=== PATIENT | male | born 1960 | race Caucasian/White ===

== ENCOUNTER → 2016-07-26 | Outpatient (CLI) | payer OTHER ==
[~2016-07-26] MED LIST: AUGMENTIN 875 M1 TAB PO; BUMETANIDE1 MG PO; CLINDAMYCIN HC300 MG PO; ENTERIC ASPIRI325 MG PO; EYE DROPS; FOLTANX TABLET1 EACH PO; FOLTRATE PO; GABAPENTIN100 M1 PO; GABAPENTIN100 M2 PO; HYZAAR 12.5 MG-1 TA1 PO; KRILL OIL500 MG PO; LANTUS SOLOS100 U/M1 SC; LANTUS100 U/ML SC; LASIX40 MG PO; LINZESS PO; LOSARTAN POTASS50 M1 PO; Meclizine25 MG PO; NOVOLIN R100 U/ML IJ; NOVOLOG 701 UNIT/0.0 IV; NOVOLOG FLEX100 U/ML IJ; OMEGA-3 FISH1200 MG PO; OMNICEF300 MG PO; PLAVIX75 MG PO; PROTONIX40 MG PO; TENORMIN25 MG PO; TOUJEO300 U/ML SC; VICODIN ES 7501 TAB PO; ZOCOR80 MG PO; ZOVIRAX800 MG PO
[2016-07-26 11:55] LABS: BILIRUBIN NEGATIVE (NEGATIVE); BLOOD NEGATIVE (NEGATIVE); CLARITY CLEAR (CLEAR); COLOR YELLOW (YELLOW); GLUCOSE NEGATIVE (NEGATIVE); KETONE NEGATIVE (NEGATIVE); LEUKO ESTERASE NEGATIVE (NEGATIVE); NITRITE NEGATIVE (NEGATIVE); PROTEIN NEGATIVE (NEGATIVE); SPECIFIC GRAVITY <= 1.005 (1.005-1.030); UROBILINOGEN 0.2 E.U./dl (0.2-1.0)
[2016-07-26 12:02] LABS: BASO # 0.1 10*3/uL (0.0-0.1); BASO % 0.8 % (0.0-1.0); EOS # 0.3 10*3/uL (0.0-0.4); HEMATOCRIT 36.5 % (42.0-52.0); HEMOGLOBIN 12.2 g/dl (14.0-18.0); LYMPH # 1.2 10*3/uL (1.3-4.4); LYMPH % 18.4 % (27.0-41.0); MEAN CELL VOLUME 88.8 fl (80.0-94.0); MEAN CORPUSCULAR HGB 29.7 pg (27.0-31.0); MEAN CORPUSCULAR HGB CONC 33.4 g/dl (33.0-37.0); MEAN PLATELET VOLUME 12.6 fl (9.6-12.3); MONO # 0.8 10*3/uL (0.1-1.0); MONO % 11.4 % (3.0-9.0); NEUT # 4.3 10*3/uL (2.3-7.9); NEUT % 64.9 % (47.0-73.0); PLATELET COUNT AUTOMATED 184 10*3/uL (130-400); RED BLOOD COUNT 4.11 10*6/uL (4.50-5.90); RED CELL DISTRI WIDTH 13.3 % (0-14.5); WHITE BLOOD COUNT 6.6 10*3/uL (4.8-10.8)
[2016-07-26 12:03] LABS: URINE TP/CRE RATIO 0.1 (<0.21)
[2016-07-26 12:09] LABS: EPITHELIAL CELLS 0-2
[2016-07-26 12:16] LABS: ALBUMIN 3.5 gm/dl (3.1-4.5); MAGNESIUM 2.4 mg/dL (1.5-2.1); PHOSPHOROUS 2.9 mg/dL (2.5-4.9); POTASSIUM 4.1 mmol/L (3.5-5.1)
[2016-07-26 12:21] LABS: HEMOGLOBIN A1c 10.6 % (4.8-5.6)
[2016-07-26 12:28] LABS: PTH INTACT 66.4 pg/mL (14.0-72.0); VITAMIN D, 25-HYDROXY 29.3 ng/mL (30-100)
== END | disposition home or self-care (01) ==
LOC: LAB 11:16
PROVIDERS: Internal Medicine Nephrology
DX: E10.22 Type 1 diabetes mellitus with diabetic chronic kidney disease (principal); N18.3 Chronic kidney disease, stage 3 (moderate); E55.9 Vitamin D deficiency, unspecified

== ENCOUNTER → 2016-09-20 | Outpatient (CLI) | payer OTHER ==
--- NOTE | ~2016-09-20 | PR ---
[place], [place] PROGRESS NOTE NAME: CHAPIS WOOD UNIT #: [id number] ROOM: DOCTOR: NORMA GUTHRIE DPM BIRTHDATE: [birth year] DOS: 09/20/2016 SUBJECTIVE: This is a patient that has been previously seen at [facility], but has not been seen for a quite some time. He is here for new complaint of bilateral lower extremity ulcers. He states that the right leg had opened, but it was pretty stable, The left leg that has become very swollen and there is quite a bit of open areas, redness and swelling and pain associated with the areas. PHYSICAL EXAMINATION: It is noted that the right lower leg ulcerations are as described on the right lower leg, anterior measures 1 x 1.3 x 0.1 cm. Right lower leg posterior wound measures 0.8 x 1.4 x 0.1 cm. Left leg anterior wound is 7.6 x 6 x 0.1 cm and left lower leg posterior wound is 13 x 6 x 0.1 cm. Cellulitis is noted around all wounds. The left leg has +2 pitting edema with a tight skin and increased warmth to the tissue structures surrounding the ulceration. No odor is noted. No active drainage is noted from the areas at this time. Pulses are palpable. ABIs were 1.3 bilateral. IMPRESSION: Bilateral lower extremity peripheral vascular disease with venous stasis ulcerations and early cellulitis. PLAN: 1. Evaluate. 2. Culture and sensitivities were obtained. The patient was placed on doxycycline hyclate 100 mg tablets 1 tablet p.o. b.i.d. We will start him on Maxorb Ag and a dry bulky dressing to the area twice daily or more so if needed with drainage. Elevation will be nassar. The patient was also educated about his diet and again elevation. The patient will be seen next week for followup of this complaint. NORMA GUTHRIE DPM CM:PNTRANS 2 NORMA GUTHRIE DPM 09/20/16 0952 interface
== END | disposition home or self-care (01) ==
LOC: WOUNDCARE 02:45
DX: I87.333 Chronic venous hypertension (idiopathic) with ulcer and inflammation of bilateral lower extremity (principal); L97.212 Non-pressure chronic ulcer of right calf with fat layer exposed; L97.222 Non-pressure chronic ulcer of left calf with fat layer exposed

== ENCOUNTER → 2016-09-27 | Outpatient (CLI) | payer OTHER ==
--- NOTE | ~2016-09-27 | PR ---
[place], [place] PROGRESS NOTE NAME: CHAPIS WOOD UNIT #: [id number] ROOM: DOCTOR: NORMA GUTHRIE DPM BIRTHDATE: [birth year] DOS: 09/27/2016 SUBJECTIVE: The patient seen for bilateral lower extremity full-thickness venous ulcerations. Last visit, the patient was placed on doxycycline and a culture was taken. He was started on Maxorb AG. He has been performing dressing changes as directed and he has taken the doxycycline. Culture results did come back with MRSA, which was susceptible to tetracycline. PHYSICAL EXAMINATION: It is noted that the right lower leg anterior wound measures 0.8 x 0.8 x 0.1 cm. Right lower leg posterior ulceration is 0.4 cm x 0.8 cm x 0.1 cm. Left leg anterior wound is 7.5 cm x 6 cm x 0.1 cm and left lower leg posterior wound is 12 cm x 6 cm x 0.1 cm. All wounds are slough covered. Today, a 15 blade was used to remove slough and debris through subcutaneous. The patient tolerated procedure well and no bleeding was noted. No signs of overt or gross abscess or infection. Cellulitis is resolving. There is still prominent edema bilateral lower extremity, +1 pitting in nature. IMPRESSION: Peripheral vascular disease with full-thickness venous ulcerations as described above and edema. PLAN: 1. Evaluate. 2. Debridement was performed as described above. The patient did have his doxycycline extended for 5 additional days. Today, we will start multilayer compression therapy, Maxorb Ag and multilayer compression will be applied to bilateral lower extremities. The patient will keep this on clean, dry, and intact and be seen for a nurse visit on Monday and then hopefully if things are going well, multilayer compression wrap will be reapplied and I will see him again next [facility]. NORMA GUTHRIE DPM CM:PNTRANS [phone] NORMA GUTHRIE DPM 09/27/162137 interface
== END ==
LOC: WOUNDCARE 03:25
DX: I87.333 Chronic venous hypertension (idiopathic) with ulcer and inflammation of bilateral lower extremity (principal); L97.212 Non-pressure chronic ulcer of right calf with fat layer exposed; L97.222 Non-pressure chronic ulcer of left calf with fat layer exposed; I73.9 Peripheral vascular disease, unspecified

== ENCOUNTER → 2016-09-30 | Outpatient (CLI) | payer OTHER | LOC: WOUNDCARE 00:46 | DX: I87.333 Chronic venous hypertension (idiopathic) with ulcer and inflammation of bilateral lower extremity (principal); L97.212 Non-pressure chronic ulcer of right calf with fat layer exposed; L97.222 Non-pressure chronic ulcer of left calf with fat layer exposed ==

== ENCOUNTER → 2016-10-04 | Outpatient (CLI) | payer OTHER ==
--- NOTE | ~2016-10-04 | PR ---
[place], [place] PROGRESS NOTE NAME: CHAPIS WOOD UNIT #: [id number] ROOM: DOCTOR: NORMA GUTHRIE DPM BIRTHDATE: [birth year] DOS: 10/04/2016 SUBJECTIVE: The patient seen for bilateral lower extremity venous ulcers. The patient states that on Monday, he believes that he got into possibly some poison sumac, so he removed the multilayer compressions, so that he can take a shower. Otherwise, he has had some burning in the legs, but it was not necessarily alleviated by removal of compression wrap therapy. He has been keeping the bandages. The wounds, otherwise, covered with gauze. The patient seen today with right lower leg anterior ulcer, progressing well at 0.6 x 0.6 x 0.1, right lower leg posterior wound is 0.1 x 0.1 x 0.1. Both of these wounds are improved. No debridement was performed at this time on this area. Left lower leg anterior wound is 6.6 cm x 3.5 cm x 0.1 cm. There is slough covered left lower leg posterior ulcer, circumferential is 12.5 cm x 7 cm x 0.1 cm. These are slough covered also. Both of these areas were debrided with 15 blade through subcutaneous to remove devitalized tissue debris and fibrosis. The patient tolerated the procedure well. Minimal bleeding was noted and controlled via pressure. The patient tolerated the procedure well. IMPRESSION: Bilateral lower extremity ulcerations, full thickness venous in nature. Today, debridement was performed as described above and instead of multilayer compression wrap therapy, we will use Unna boots to see if patient tolerates the Unna boots. He might have a slight allergic reaction to the multilayer compression wrap therapy. If the patient has any difficulties with the Unna boot therapy, he is to call us at the [facility]. Otherwise, we will see him for followup next week. NORMA GUTHRIE DPM CM:PNTRANS [phone] NORMA GUTHRIE DPM 10/05/16 0009 interface
== END ==
LOC: WOUNDCARE 02:03
DX: I87.333 Chronic venous hypertension (idiopathic) with ulcer and inflammation of bilateral lower extremity (principal); L97.212 Non-pressure chronic ulcer of right calf with fat layer exposed; L97.222 Non-pressure chronic ulcer of left calf with fat layer exposed

== ENCOUNTER → 2016-10-11 | Outpatient (CLI) | payer OTHER ==
--- NOTE | ~2016-10-11 | PR ---
[place], [place] PROGRESS NOTE NAME: CHAPIS WOOD UNIT #: [id number] ROOM: DOCTOR: NORMA GUTHRIE DPM BIRTHDATE: [birth year] DOS: 10/11/2016 SUBJECTIVE: The patient is seen for bilateral lower extremity full thickness venous ulcers. The patient had Unna boots applied last week on Monday. He had kept them on, but said they started to unroll and then he ended up taking them off on Monday, otherwise no new complaints. PHYSICAL EXAMINATION: It is noted that all the wounds are improved in diameter and character. Right lower leg anterior wound is measuring 0.8 cm x 0.5 cm x 0.1 cm. Right lower leg posterior wound is 0.5 cm x 0.3 cm x 0.1 cm. Left leg anterior wound is 3.7 cm x 3 cm x 0.1 cm and left lower leg posterior wound is 12.5 cm x 7 cm x 0.1 cm. All wounds have a mix of epithelialization and granulation tissue. No slough or debris or need for debridement is present. Edema is controlled, as is exudate management today. IMPRESSION: Bilateral peripheral vascular disease with edema and venous ulcers, progressing well. PLAN: 1. We will evaluate. 2. We will use Lesvia and Unna boots for compression therapy. The patient is to keep this on clean, dry and intact for 1 week and reappoint next Monday for a nurse visit, as I will be out of town and then I will continue to see him, but see him on Monday starting in October. NORMA GUTHRIE DPM CM:PNTRANS [phone] NORMA GUTHRIE DPM 10/11/16 1038 interface
== END ==
LOC: WOUNDCARE 04:04
DX: I87.333 Chronic venous hypertension (idiopathic) with ulcer and inflammation of bilateral lower extremity (principal); L97.212 Non-pressure chronic ulcer of right calf with fat layer exposed; L97.222 Non-pressure chronic ulcer of left calf with fat layer exposed; I73.9 Peripheral vascular disease, unspecified

== ENCOUNTER → 2016-10-14 | Outpatient (CLI) | payer OTHER | LOC: WOUNDCARE 08:02 | DX: I87.333 Chronic venous hypertension (idiopathic) with ulcer and inflammation of bilateral lower extremity (principal); L97.212 Non-pressure chronic ulcer of right calf with fat layer exposed; L97.222 Non-pressure chronic ulcer of left calf with fat layer exposed ==

== ENCOUNTER → 2016-10-18 | Outpatient (CLI) | payer OTHER | LOC: WOUNDCARE 01:18 | DX: I87.333 Chronic venous hypertension (idiopathic) with ulcer and inflammation of bilateral lower extremity (principal); L97.212 Non-pressure chronic ulcer of right calf with fat layer exposed; L97.222 Non-pressure chronic ulcer of left calf with fat layer exposed ==

== ENCOUNTER → 2016-10-24 | Outpatient (CLI) | payer OTHER | LOC: WOUNDCARE 02:03 | DX: I87.333 Chronic venous hypertension (idiopathic) with ulcer and inflammation of bilateral lower extremity (principal); L97.212 Non-pressure chronic ulcer of right calf with fat layer exposed; L97.222 Non-pressure chronic ulcer of left calf with fat layer exposed ==

== ENCOUNTER → 2016-10-27 | Outpatient (CLI) | payer OTHER | LOC: WOUNDCARE 00:27 | DX: I87.333 Chronic venous hypertension (idiopathic) with ulcer and inflammation of bilateral lower extremity (principal); E10.622 Type 1 diabetes mellitus with other skin ulcer; L97.212 Non-pressure chronic ulcer of right calf with fat layer exposed; L97.222 Non-pressure chronic ulcer of left calf with fat layer exposed; I25.10 Atherosclerotic heart disease of native coronary artery without angina pectoris; I10 Essential (primary) hypertension; I25.2 Old myocardial infarction; E10.36 Type 1 diabetes mellitus with diabetic cataract; K21.9 Gastro-esophageal reflux disease without esophagitis; E10.40 Type 1 diabetes mellitus with diabetic neuropathy, unspecified; J45.909 Unspecified asthma, uncomplicated; Z79.01 Long term (current) use of anticoagulants; Z45.018 Encounter for adjustment and management of other part of cardiac pacemaker ==

== ENCOUNTER → 2016-11-04 | Outpatient (CLI) | payer OTHER | LOC: WOUNDCARE 02:46 | DX: I87.333 Chronic venous hypertension (idiopathic) with ulcer and inflammation of bilateral lower extremity (principal); L97.212 Non-pressure chronic ulcer of right calf with fat layer exposed; L97.222 Non-pressure chronic ulcer of left calf with fat layer exposed ==

== ENCOUNTER → 2016-11-09 | Outpatient (CLI) | payer OTHER | LOC: WOUNDCARE 03:09 | DX: I87.333 Chronic venous hypertension (idiopathic) with ulcer and inflammation of bilateral lower extremity (principal); L97.212 Non-pressure chronic ulcer of right calf with fat layer exposed; L97.222 Non-pressure chronic ulcer of left calf with fat layer exposed ==

== ENCOUNTER → 2016-11-11 | Outpatient (CLI) | payer OTHER ==
--- NOTE | ~2016-11-11 | PR ---
[place], [place] PROGRESS NOTE NAME: CHAPIS WOOD UNIT #: [id number] ROOM: DOCTOR: NORMA GUTHRIE DPM BIRTHDATE: [birth year] DOS: 11/11/2016 SUBJECTIVE: This is an established patient seen for bilateral lower extremity full thickness venous ulcers. He did have a nurse visit midweek but was unable to change, so he was able to keep them on again until this visit. OBJECTIVE: The right foot unwrapped a tiny bit, but he did keep his compression on. There is small new open area on the right lower leg that measures 0.1 x 0.1 x 0.1. Left lower leg anterior ulcer is smaller at 0.4 x 0.4 x 0.1 and the other wounds are also improved. There was a debridement performed on the left lower leg anterior dorsal ulcer to remove callus tissue and debris. No bleeding was noted. The patient tolerated the procedure well. IMPRESSION: Bilateral lower extremity venous ulcers, progressing well. PLAN: 1. Evaluate. 2. Debridement was performed. We will reapply Unna boot. I would like the patient to keep them on as long as possible. Unfortunately, because we do not have the physician in clinic all next week, we cannot do a nurse visit, so if he would have to remove them prior to the following week, we would like him to remove it and then put double Tubigrip on. The patient will be followed the week after next at the wound care center for this complaint. He is to call if any problems arise in the meantime. NORMA GUTHRIE DPM CM:PNTRANS [phone] NORMA GUTHRIE DPM 11/11/16 2338 interface
== END | disposition home or self-care (01) ==
LOC: WOUNDCARE 02:22
DX: I87.313 Chronic venous hypertension (idiopathic) with ulcer of bilateral lower extremity (principal); L97.811 Non-pressure chronic ulcer of other part of right lower leg limited to breakdown of skin; L97.821 Non-pressure chronic ulcer of other part of left lower leg limited to breakdown of skin

== ENCOUNTER → 2016-12-09 | Outpatient (CLI) | payer OTHER ==
--- NOTE | ~2016-12-09 | PR ---
[place], [place] PROGRESS NOTE NAME: CHAPIS WOOD UNIT #: [id number] ROOM: DOCTOR: NORMA GUTHRIE DPM BIRTHDATE: [birth year] DOS: SUBJECTIVE: The patient seen back at the wound care center for bilateral lower extremity venous ulcers. The patient had been seen here and wounds healed previously. Apparently, he is having some problems with kidney dysfunction. He was told to not take his water pill when he was not taking the diuretic, he had a lot of lower extremity edema, which subsequently resulted in multiple areas of blister that then ulcerated, and he is here for that complaint. Upon physical exam, there were multiple areas of superficial partial thickness venous ulcers on both the right and lower leg. There are over 6 wounds in total. These wounds are all noted and charted and measured and put in the nurse's notes. There is slough covered wounds on the left lower leg, which were debrided. The area that was debrided on the anterior left lower leg measured 2.5 cm x 1.5 cm x 0.1 cm. This area was debrided of slough, debris and devitalized tissues through subcutaneous. The patient tolerated the procedure well and had no problems during the procedure. The left lower leg medial posterior ulcer is also slough covered at 0.4 cm x 0.7 cm x 0.1 cm. This area was debrided through to subcutaneous with the 15 blade to remove devitalized tissue. The patient tolerated this procedure well and no bleeding was noted or signs of infection. There is some slight erythema on the lower extremities with some warmth to the area. It is not certain that this is because of the uncontrolled edema or very mild cellulitis. Because of this, the patient will be placed on doxycycline. IMPRESSION: Partial thickness venous ulcers, bilateral lower extremity, multiple in nature. PLAN: 1. Evaluate. 2. Debridement of two ulcers was performed as described above. We will use Puracol and Unna boots for compression. The patient will keep these on until Monday. I would like to see him back as a nurse visit to make certain that he is tolerating the procedures well and I have placed him on doxycycline hyclate 100 mg tablets 1 tablet p.o. b.i.d. and we will go from there. [place], [place] PROGRESS NOTE NAME: CHAPIS WOOD UNIT #: [id number] ROOM: DOCTOR: NORMA GUTHRIE DPM BIRTHDATE: [birth year] NORMA GUTHRIE DPM CM:KATHY [phone] NORMA GUTHRIE DPM 12/10/16 0018 interface
== END | disposition home or self-care (01) ==
LOC: WOUNDCARE 02:01
DX: I87.333 Chronic venous hypertension (idiopathic) with ulcer and inflammation of bilateral lower extremity (principal); L97.212 Non-pressure chronic ulcer of right calf with fat layer exposed; L97.222 Non-pressure chronic ulcer of left calf with fat layer exposed

== ENCOUNTER → 2016-12-13 | Outpatient (CLI) | payer OTHER | END | disposition home or self-care (01) | LOC: WOUNDCARE 08:05 | DX: I87.333 Chronic venous hypertension (idiopathic) with ulcer and inflammation of bilateral lower extremity (principal); L97.212 Non-pressure chronic ulcer of right calf with fat layer exposed; L97.222 Non-pressure chronic ulcer of left calf with fat layer exposed ==

== ENCOUNTER → 2016-12-15 | Outpatient (CLI) | payer OTHER ==
[2016-12-15 13:18] LABS: BASO # 0.1 10*3/uL (0.0-0.1); BASO % 0.8 % (0.0-1.0); EOS # 0.2 10*3/uL (0.0-0.4); EOS % 3.8 % (1.0-4.0); HEMATOCRIT 36.1 % (42.0-52.0); LYMPH # 1.4 10*3/uL (1.3-4.4); LYMPH % 23.5 % (27.0-41.0); MEAN CELL VOLUME 90.7 fl (80.0-94.0); MEAN CORPUSCULAR HGB 30.2 pg (27.0-31.0); MEAN CORPUSCULAR HGB CONC 33.2 g/dl (33.0-37.0); MONO # 0.6 10*3/uL (0.1-1.0); MONO % 10.2 % (3.0-9.0); NEUT # 3.7 10*3/uL (2.3-7.9); NEUT % 61.4 % (47.0-73.0); PLATELET COUNT AUTOMATED 176 10*3/uL (130-400); RED BLOOD COUNT 3.98 10*6/uL (4.50-5.90); RED CELL DISTRI WIDTH 13.7 % (0-14.5)
[2016-12-15 13:29] LABS: ALBUMIN 3.4 gm/dl (3.1-4.5); CREATININE 1.58 mg/dL (0.70-1.30); MAGNESIUM 2.2 mg/dL (1.5-2.1); PHOSPHOROUS 2.5 mg/dL (2.5-4.9); POTASSIUM 4.1 mmol/L (3.5-5.1)
[2016-12-15 13:46] LABS: BILIRUBIN NEGATIVE (NEGATIVE); BLOOD NEGATIVE (NEGATIVE); CLARITY CLEAR (CLEAR); COLOR YELLOW (YELLOW); GLUCOSE TRACE (NEGATIVE); KETONE NEGATIVE (NEGATIVE); LEUKO ESTERASE NEGATIVE (NEGATIVE); NITRITE NEGATIVE (NEGATIVE); PH 5.5 (5.0-9.0); SPECIFIC GRAVITY 1.015 (1.005-1.030); UROBILINOGEN 0.2 E.U./dl (0.2-1.0)
[2016-12-15 14:02] LABS: VITAMIN D, 25-HYDROXY 40.5 ng/mL (30-100)
[2016-12-15 14:03] LABS: PTH INTACT 45.3 pg/mL (14.0-72.0)
== END | disposition home or self-care (01) ==
LOC: LAB 12:55
PROVIDERS: Internal Medicine Nephrology
DX: N18.3 Chronic kidney disease, stage 3 (moderate) (principal); E10.22 Type 1 diabetes mellitus with diabetic chronic kidney disease; E55.9 Vitamin D deficiency, unspecified

== ENCOUNTER → 2016-12-16 | Outpatient (CLI) | payer OTHER ==
--- NOTE | ~2016-12-16 | PR ---
[place], [place] PROGRESS NOTE NAME: CHAPIS WOOD UNIT #: [id number] ROOM: DOCTOR: NORMA GUTHRIE DPM BIRTHDATE: [birth year] DOS: 12/16/2016 SUBJECTIVE: The patient seen for bilateral lower extremity venous stasis ulcers. Last week, we put him Unna boots and he has tolerated that procedure well. PHYSICAL EXAMINATION: It is noted that the right lower leg wounds are essentially healed. They are scabbed over and measuring 0.1 x 0.1 x 0.1. Left leg does have one area with open wound that measures 1 cm x 1 cm x 0.1 cm. This area was not debrided. It is clean and very healthy at this point in time. Edema is controlled and no signs of any cellulitis or any other abnormalities noted. IMPRESSION: Venous ulcers with edema controlled well with Unna boots. PLAN; 1. Evaluate. 2. We will place the patient in a double Tubigrip on the right, but we will reapply the Unna boot to the left. The patient will keep this on clean, dry, and intact and reappoint in 1 week if any problems should arise. He is to call the [facility] previously to that. NORMA GUTHRIE DPM CM:PNTRANS [phone] NORMA GUTHRIE DPM 12/17/16 0124 interface
== END | disposition home or self-care (01) ==
LOC: WOUNDCARE 03:00
DX: I87.333 Chronic venous hypertension (idiopathic) with ulcer and inflammation of bilateral lower extremity (principal); L97.212 Non-pressure chronic ulcer of right calf with fat layer exposed; L97.222 Non-pressure chronic ulcer of left calf with fat layer exposed

== ENCOUNTER → 2016-12-23 | Outpatient (CLI) | payer OTHER ==
--- NOTE | ~2016-12-23 | PR ---
[place], [place] PROGRESS NOTE NAME: CHAPIS WOOD UNIT #: [id number] ROOM: DOCTOR: NORMA GUTHRIE DPM BIRTHDATE: [birth year] DOS: 12/23/2016 SUBJECTIVE: The patient seen for bilateral lower extremity venous stasis ulcers. He had multilayer compression with Unna boot on the right. He was wearing the Tubigrip on the left. Today, he presents with a new ulceration on the left lower extremity. Right is unproblematic at this point in time. With removal of the Unna boot, it is noted that the right lower extremity ulcers are scabbed over and crusted over, but on the left lower extremity, there is a new ulceration which is measuring 0.5 cm x 0.6 cm x 0.1 cm. This area was not debrided. There is some minimal serous drainage coming from the area and no signs of infection. IMPRESSION: Bilateral lower extremity venous stasis with chronic ulcerations due to edema. PLAN: 1. Evaluate. 2. It was discussed with the patient that we need to really control his edema with compression. He states that his regular compression stockings cut him off at the ankle. There is a new type of compression stocking from [employer] that also has a zipper and I think would be good for him because it would not cut him off at the ankle. I am trying to get that authorized through his insurance for him. In the meantime, we will rewrap both lower extremities with Unna boots for compression therapy and see him back in 1 week. NORMA GUTHRIE DPM CM:PNTRANS [phone] NORMA GUTHRIE DPM 12/24/16 0940 interface
== END | disposition home or self-care (01) ==
LOC: WOUNDCARE 00:25
DX: I87.333 Chronic venous hypertension (idiopathic) with ulcer and inflammation of bilateral lower extremity (principal); L97.222 Non-pressure chronic ulcer of left calf with fat layer exposed; L97.212 Non-pressure chronic ulcer of right calf with fat layer exposed

== ENCOUNTER → 2017-01-06 | Outpatient (CLI) | payer OTHER ==
--- NOTE | ~2017-01-06 | PR ---
[place], [place] PROGRESS NOTE [id number] UNIT #: [id number] ROOM: DOCTOR: NORMA GUTHRIE DPM BIRTHDATE: [birth year] DOS: 01/06/2017 SUBJECTIVE: The patient is seen today for new complaints of reopened ulcers, bilateral lower extremities. The patient has not been seen for a couple of weeks. He said that his previous ulcers had healed. Several days ago, he had a bump on his coffee table on his right lower extremity, which caused an ulceration and a day later, a blister that opened up on the left lower extremity and caused ulcerations. He is here for those complaints. PHYSICAL EXAMINATION: It is noted that the left lower leg medial anterior proximal wound has healed. Left lower leg medial anterior distal wound has healed. Left leg lower midline posterior wound has healed. Right lower leg medial anterior proximal wound has healed. Right lower leg lateral proximal wound was healed. Right lower leg lateral distal wound was healed. The patient has an open area on the right lower leg midline, which measures 0.7 x 1.5 x 0.1 and also an open area on the left lower leg posterior, measuring 4 cm x 7 cm x 0.1 cm. This area was debrided through subcutaneous with a 15 blade to remove devitalized tissue and debris. No bleeding was noted. The patient tolerated procedure well. No signs of infection or other complications noted. IMPRESSION: Bilateral lower extremity full thickness venous stasis ulcerations, one on the right, complicated by trauma. PLAN: 1. Evaluate. 2. Debridement of the left leg was performed as described above. We will use Aquacel and Unna boots to the area for compression. The patient is to keep these dressings on, clean, dry, and intact for an entire week and then reappoint in 1 week for followup. If any problems should arise, he can call us immediately. NORMA GUTHRIE DPM CM:PNTRANS [phone] NORMA GUTHRIE DPM 01/06/17 1341 interface
== END | disposition home or self-care (01) ==
LOC: WOUNDCARE 02:40
DX: I87.333 Chronic venous hypertension (idiopathic) with ulcer and inflammation of bilateral lower extremity (principal); L97.212 Non-pressure chronic ulcer of right calf with fat layer exposed; L97.222 Non-pressure chronic ulcer of left calf with fat layer exposed

== ENCOUNTER → 2017-01-13 | Outpatient (CLI) | payer OTHER | END | disposition home or self-care (01) | LOC: WOUNDCARE 02:11 | DX: E11.621 Type 2 diabetes mellitus with foot ulcer (principal); I87.333 Chronic venous hypertension (idiopathic) with ulcer and inflammation of bilateral lower extremity; L97.212 Non-pressure chronic ulcer of right calf with fat layer exposed; L97.222 Non-pressure chronic ulcer of left calf with fat layer exposed; L97.512 Non-pressure chronic ulcer of other part of right foot with fat layer exposed; L97.511 Non-pressure chronic ulcer of other part of right foot limited to breakdown of skin; Z95.0 Presence of cardiac pacemaker; Z98.61 Coronary angioplasty status; Z87.891 Personal history of nicotine dependence; Z72.89 Other problems related to lifestyle ==

== ENCOUNTER → 2017-05-09 | Outpatient (CLI) | payer OTHER ==
[2017-05-09 13:34] LABS: BASO # 0.1 10*3/uL (0.0-0.1); BILIRUBIN NEGATIVE (NEGATIVE); BLOOD NEGATIVE (NEGATIVE); CLARITY CLEAR (CLEAR); COLOR YELLOW (YELLOW); EOS # 0.3 10*3/uL (0.0-0.4); EOS % 4.6 % (1.0-4.0); GLUCOSE 2+ (NEGATIVE); HEMATOCRIT 39.4 % (42.0-52.0); HEMOGLOBIN 13.2 g/dl (14.0-18.0); KETONE NEGATIVE (NEGATIVE); LEUKO ESTERASE NEGATIVE (NEGATIVE); LYMPH # 1.6 10*3/uL (1.3-4.4); LYMPH % 23.2 % (27.0-41.0); MEAN CELL VOLUME 88.7 fl (80.0-94.0); MEAN CORPUSCULAR HGB 29.7 pg (27.0-31.0); MEAN CORPUSCULAR HGB CONC 33.5 g/dl (33.0-37.0); MEAN PLATELET VOLUME 12.7 fl (9.6-12.3); MONO # 0.6 10*3/uL (0.1-1.0); MONO % 9.5 % (3.0-9.0); NEUT # 4.2 10*3/uL (2.3-7.9); NEUT % 61.4 % (47.0-73.0); NITRITE NEGATIVE (NEGATIVE); PLATELET COUNT AUTOMATED 186 10*3/uL (130-400); RED BLOOD COUNT 4.44 10*6/uL (4.50-5.90); RED CELL DISTRI WIDTH 12.8 % (0-14.5); SPECIFIC GRAVITY <= 1.005 (1.005-1.030); UROBILINOGEN 0.2 E.U./dl (0.2-1.0); WHITE BLOOD COUNT 6.8 10*3/uL (4.8-10.8)
[2017-05-09 13:42] LABS: BACTERIA TRACE; EPITHELIAL CELLS 0-2; HYALINE CAST 20-25
[2017-05-09 13:58] LABS: ALBUMIN 3.6 gm/dl (3.1-4.5); CREATININE 1.78 mg/dL (0.70-1.30); PHOSPHOROUS 2.5 mg/dL (2.5-4.9)
[2017-05-09 14:11] LABS: URINE CREATININE RANDOM 32.9 mg/dL
[2017-05-09 14:25] LABS: PTH INTACT 59.6 pg/mL (14.0-72.0)
== END | disposition home or self-care (01) ==
LOC: LAB 13:01
PROVIDERS: Internal Medicine Nephrology
DX: E10.22 Type 1 diabetes mellitus with diabetic chronic kidney disease (principal); N18.3 Chronic kidney disease, stage 3 (moderate); E55.9 Vitamin D deficiency, unspecified

== ENCOUNTER → 2017-08-11 | Outpatient (CLI) | payer OTHER ==
[2017-08-11 10:00] LABS: BASO # 0.1 10*3/uL (0.0-0.1); BASO % 1.1 % (0.0-1.0); EOS # 0.2 10*3/uL (0.0-0.4); EOS % 3.6 % (1.0-4.0); HEMOGLOBIN 12.2 g/dl (14.0-18.0); LYMPH # 1.4 10*3/uL (1.3-4.4); LYMPH % 22.7 % (27.0-41.0); MEAN CELL VOLUME 89.3 fl (80.0-94.0); MEAN CORPUSCULAR HGB 30.3 pg (27.0-31.0); MEAN CORPUSCULAR HGB CONC 33.9 g/dl (33.0-37.0); MONO # 0.6 10*3/uL (0.1-1.0); MONO % 9.2 % (3.0-9.0); NEUT # 3.9 10*3/uL (2.3-7.9); NEUT % 62.9 % (47.0-73.0); PLATELET COUNT AUTOMATED 173 10*3/uL (130-400); RED BLOOD COUNT 4.03 10*6/uL (4.50-5.90); RED CELL DISTRI WIDTH 13.2 % (0-14.5); WHITE BLOOD COUNT 6.2 10*3/uL (4.8-10.8)
[2017-08-11 10:26] LABS: ALBUMIN 3.5 gm/dl (3.1-4.5); BUN 34 mg/dl (7-24); CHLORIDE 103 mmol/L (98-107); CREATININE 1.33 mg/dL (0.70-1.30); PHOSPHOROUS 3.1 mg/dL (2.5-4.9); POTASSIUM 4.1 mmol/L (3.5-5.1); SODIUM 139 mmol/L (136-145)
[2017-08-11 10:32] LABS: INTERNATIONAL NORM RATIO 0.9 (2.0-3.5)
[2017-08-11 10:32] LABS: BILIRUBIN NEGATIVE (NEGATIVE); BLOOD NEGATIVE (NEGATIVE); CLARITY SL CLOUDY (CLEAR); COLOR YELLOW (YELLOW); GLUCOSE NEGATIVE (NEGATIVE); KETONE NEGATIVE (NEGATIVE)
[2017-08-11 10:33] LABS: BACTERIA TRACE; EPITHELIAL CELLS 0-2; LEUKO ESTERASE NEGATIVE (NEGATIVE); NITRITE NEGATIVE (NEGATIVE); UROBILINOGEN 0.2 E.U./dl (0.2-1.0)
[2017-08-11 10:35] LABS: URINE CREATININE RANDOM 90.7 mg/dL
[2017-08-11 12:13] LABS: PTH INTACT 47.2 pg/mL (14.0-72.0); VITAMIN D, 25-HYDROXY 21.5 ng/mL (30-100)
== END | disposition home or self-care (01) ==
LOC: LAB 08-09 08:31
PROVIDERS: Internal Medicine Nephrology
DX: E10.22 Type 1 diabetes mellitus with diabetic chronic kidney disease (principal); N18.3 Chronic kidney disease, stage 3 (moderate); E55.9 Vitamin D deficiency, unspecified

== ENCOUNTER → 2018-08-27 | Outpatient (CLI) | payer MEDICARE, OTHER | END | disposition home or self-care (01) | LOC: WOUNDCARE 00:07 → EDSTATUS 23:48 | DX: E11.622 Type 2 diabetes mellitus with other skin ulcer (principal); I87.311 Chronic venous hypertension (idiopathic) with ulcer of right lower extremity; L97.812 Non-pressure chronic ulcer of other part of right lower leg with fat layer exposed; E11.65 Type 2 diabetes mellitus with hyperglycemia; Z87.891 Personal history of nicotine dependence ==

== ENCOUNTER → 2018-09-18 | Outpatient (CLI) | payer MEDICARE, OTHER | END | disposition home or self-care (01) | LOC: WOUNDCARE 01:42 | DX: E11.622 Type 2 diabetes mellitus with other skin ulcer (principal); L97.812 Non-pressure chronic ulcer of other part of right lower leg with fat layer exposed; I87.311 Chronic venous hypertension (idiopathic) with ulcer of right lower extremity; E11.65 Type 2 diabetes mellitus with hyperglycemia; Z87.891 Personal history of nicotine dependence ==

== ENCOUNTER → 2018-09-24 | Outpatient (CLI) | payer MEDICARE, OTHER | END | disposition home or self-care (01) | LOC: WOUNDCARE 01:39 | DX: E11.622 Type 2 diabetes mellitus with other skin ulcer (principal); L97.822 Non-pressure chronic ulcer of other part of left lower leg with fat layer exposed; L97.812 Non-pressure chronic ulcer of other part of right lower leg with fat layer exposed; I87.313 Chronic venous hypertension (idiopathic) with ulcer of bilateral lower extremity; E11.65 Type 2 diabetes mellitus with hyperglycemia; Z87.891 Personal history of nicotine dependence ==

== ENCOUNTER → 2018-10-08 | Outpatient (CLI) | payer MEDICARE, OTHER | END | disposition home or self-care (01) | LOC: US 00:34 → WOUNDCARE 00:34 | DX: E11.622 Type 2 diabetes mellitus with other skin ulcer (principal); L97.812 Non-pressure chronic ulcer of other part of right lower leg with fat layer exposed; L97.821 Non-pressure chronic ulcer of other part of left lower leg limited to breakdown of skin; S80.812D Abrasion, left lower leg, subsequent encounter; I87.313 Chronic venous hypertension (idiopathic) with ulcer of bilateral lower extremity; E11.65 Type 2 diabetes mellitus with hyperglycemia; I87.8 Other specified disorders of veins; I10 Essential (primary) hypertension; R60.9 Edema, unspecified; Z87.891 Personal history of nicotine dependence; X58.XXXD Exposure to other specified factors, subsequent encounter ==

== ENCOUNTER → 2018-10-15 | Outpatient (CLI) | payer MEDICARE, OTHER | END | disposition home or self-care (01) | LOC: WOUNDCARE 00:59 | DX: E11.622 Type 2 diabetes mellitus with other skin ulcer (principal); L97.812 Non-pressure chronic ulcer of other part of right lower leg with fat layer exposed; L97.822 Non-pressure chronic ulcer of other part of left lower leg with fat layer exposed; S80.812D Abrasion, left lower leg, subsequent encounter; I87.313 Chronic venous hypertension (idiopathic) with ulcer of bilateral lower extremity; E11.65 Type 2 diabetes mellitus with hyperglycemia; I87.8 Other specified disorders of veins; I10 Essential (primary) hypertension; R60.9 Edema, unspecified; Z87.891 Personal history of nicotine dependence; X58.XXXD Exposure to other specified factors, subsequent encounter ==

== ENCOUNTER → 2019-09-19 | Outpatient (CLI) | payer MEDICARE, OTHER | END | disposition home or self-care (01) | LOC: US 08:30 | DX: I73.9 Peripheral vascular disease, unspecified (principal); L97.222 Non-pressure chronic ulcer of left calf with fat layer exposed; I87.311 Chronic venous hypertension (idiopathic) with ulcer of right lower extremity; L97.212 Non-pressure chronic ulcer of right calf with fat layer exposed; E11.65 Type 2 diabetes mellitus with hyperglycemia ==

== ENCOUNTER → 2020-01-21 | Outpatient (CLI) | payer MEDICARE, OTHER | END | disposition home or self-care (01) | LOC: RAD 11:59 | PROVIDERS: ATTEND Nurse Practitioner Family | DX: M25.561 Pain in right knee (principal); G62.9 Polyneuropathy, unspecified; I10 Essential (primary) hypertension; E11.65 Type 2 diabetes mellitus with hyperglycemia ==

== ENCOUNTER → 2020-01-24 | Outpatient (CLI) | payer MEDICARE, OTHER ==
[2020-01-24 11:30] LABS: BILIRUBIN Negative (Negative); BLOOD Negative (Negative); CLARITY Clear (Clear); COLOR Yellow (Yellow); GLUCOSE Negative (Negative); KETONE Negative (Negative); LEUKO ESTERASE Negative (Negative); NITRITE Negative (Negative); PH 6.5 (4.5-8.0)
[2020-01-24 11:42] LABS: BACTERIA 1+; EPITHELIAL CELLS 0-2; RBC 0-2 rbc/hpf (0-2); WBC 0-2 wbc/hpf (0-5)
[2020-01-24 11:53] LABS: BASO # 0.1 10*3/uL (0.0-0.1); BASO % 1.2 % (0.0-1.0); EOS # 0.2 10*3/uL (0.0-0.4); EOS % 3.8 % (1.0-4.0); HEMATOCRIT 36.7 % (42.0-52.0); LYMPH # 1.3 10*3/uL (1.3-4.4); LYMPH % 22.4 % (27.0-41.0); MEAN CELL VOLUME 90.4 fl (80.0-94.0); MEAN CORPUSCULAR HGB 30.3 pg (27.0-31.0); MEAN CORPUSCULAR HGB CONC 33.5 g/dl (33.0-37.0); MEAN PLATELET VOLUME 13.1 fl (9.6-12.3); MONO # 0.6 10*3/uL (0.1-1.0); MONO % 10.3 % (3.0-9.0); NEUT # 3.6 10*3/uL (2.3-7.9); PLATELET COUNT AUTOMATED 176 10*3/uL (130-400); RED BLOOD COUNT 4.06 10*6/uL (4.50-5.90); RED CELL DISTRI WIDTH 12.5 % (0-14.5); WHITE BLOOD COUNT 5.8 10*3/uL (4.8-10.8)
[2020-01-24 11:58] LABS: ALBUMIN 3.3 gm/dl (3.1-4.5); BUN 24 mg/dl (7-24); CHLORIDE 104 mmol/L (98-107); CREATININE 1.42 mg/dL (0.70-1.30); POTASSIUM 4.4 mmol/L (3.5-5.1); SODIUM 134 mmol/L (136-145)
[2020-01-24 12:55] LABS: PTH INTACT 69.8 pg/mL (18.5-88.0); VITAMIN D, 25-HYDROXY 43.3 ng/mL (30-100)
== END | disposition home or self-care (01) ==
LOC: LAB 10:45
PROVIDERS: ATTEND Internal Medicine Nephrology
DX: N18.30 Chronic kidney disease, stage 3 unspecified (principal); E55.9 Vitamin D deficiency, unspecified; E10.22 Type 1 diabetes mellitus with diabetic chronic kidney disease

== ENCOUNTER → 2020-03-30 | Outpatient (CLI) | payer MEDICARE, OTHER ==
[2020-03-30 11:18] LABS: BASO # 0.1 10*3/uL (0.0-0.1); BASO % 1.1 % (0.0-1.0); EOS # 0.2 10*3/uL (0.0-0.4); EOS % 3.3 % (1.0-4.0); HEMATOCRIT 39.1 % (42.0-52.0); LYMPH # 1.5 10*3/uL (1.3-4.4); LYMPH % 21.9 % (27.0-41.0); MEAN CELL VOLUME 88.1 fl (80.0-94.0); MEAN CORPUSCULAR HGB 28.8 pg (27.0-31.0); MEAN CORPUSCULAR HGB CONC 32.7 g/dl (33.0-37.0); MEAN PLATELET VOLUME 12.4 fl (9.6-12.3); MONO # 0.7 10*3/uL (0.1-1.0); MONO % 9.3 % (3.0-9.0); NEUT # 4.5 10*3/uL (2.3-7.9); PLATELET COUNT AUTOMATED 183 10*3/uL (130-400); RED BLOOD COUNT 4.44 10*6/uL (4.50-5.90)
[2020-03-30 11:21] LABS: BILIRUBIN Negative (Negative); BLOOD Negative (Negative); CLARITY Clear (Clear); COLOR Yellow (Yellow); GLUCOSE Negative (Negative); KETONE Negative (Negative); LEUKO ESTERASE Negative (Negative); NITRITE Negative (Negative); PH 5.5 (4.5-8.0); UROBILINOGEN 0.2 E.U./dl (0.0-1.0)
[2020-03-30 11:46] LABS: URINE CREATININE RANDOM 65.7 mg/dL
[2020-03-30 11:49] LABS: ALBUMIN 3.5 gm/dl (3.1-4.5); BUN 23 mg/dl (7-24); CHLORIDE 105 mmol/L (98-107); CREATININE 1.43 mg/dL (0.70-1.30); POTASSIUM 4.2 mmol/L (3.5-5.1); SODIUM 139 mmol/L (136-145)
[2020-03-30 12:19] LABS: EPITHELIAL CELLS 0-2
== END | disposition home or self-care (01) ==
LOC: LAB 11:00
PROVIDERS: ATTEND Internal Medicine Nephrology
DX: N18.31 Chronic kidney disease, stage 3a (principal)

== ENCOUNTER → 2020-10-09 | Outpatient (CLI) | payer MEDICARE, OTHER ==
[2020-10-09 08:26] LABS: BILIRUBIN Negative (Negative); BLOOD Negative (Negative); CLARITY Clear (Clear); COLOR Yellow (Yellow); GLUCOSE Trace (Negative); KETONE Negative (Negative); LEUKO ESTERASE Negative (Negative); NITRITE Negative (Negative); PH 6.5 (4.5-8.0); SPECIFIC GRAVITY 1.015 (1.001-1.030)
[2020-10-09 08:27] LABS: BASO # 0.1 10*3/uL (0.0-0.1); BASO % 0.6 % (0.0-1.0); EOS # 0.2 10*3/uL (0.0-0.4); EOS % 2.2 % (1.0-4.0); HEMATOCRIT 39.4 % (42.0-52.0); LYMPH # 1.2 10*3/uL (1.3-4.4); LYMPH % 13.7 % (27.0-41.0); MEAN CORPUSCULAR HGB 29.8 pg (27.0-31.0); MEAN CORPUSCULAR HGB CONC 32.7 g/dl (33.0-37.0); MEAN PLATELET VOLUME 13.3 fl (9.6-12.3); MONO # 0.8 10*3/uL (0.1-1.0); NEUT # 6.1 10*3/uL (2.3-7.9); PLATELET COUNT AUTOMATED 156 10*3/uL (130-400); RED BLOOD COUNT 4.33 10*6/uL (4.50-5.90); RED CELL DISTRI WIDTH 12.7 % (0-14.5); WHITE BLOOD COUNT 8.4 10*3/uL (4.8-10.8)
[2020-10-09 08:51] LABS: ALBUMIN 3.4 gm/dl (3.1-4.5); CREATININE 1.61 mg/dL (0.70-1.30); POTASSIUM 4.7 mmol/L (3.5-5.1)
[2020-10-09 10:05] LABS: RBC 0-2 rbc/hpf (0-2)
== END | disposition home or self-care (01) ==
LOC: LAB 07:56
PROVIDERS: ATTEND Internal Medicine Nephrology
DX: N18.31 Chronic kidney disease, stage 3a (principal)

== ENCOUNTER 2021-01-26 19:59 | Emergency (ER) | payer MEDICARE, OTHER ==
[~2021-01-26] VITALS: Ht 175.2 cm; Wt 120.2 kg
[2021-01-27] MEDS ORDERED: LEVOFLOXACIN750 M2 PO (02:10)
== END 2021-01-27 02:57 | disposition left against medical advice (07) ==
LOC: ED 19:59
DX: M86.9 Osteomyelitis, unspecified (principal); Z88.6 Allergy status to analgesic agent; Z88.1 Allergy status to other antibiotic agents; Z79.899 Other long term (current) drug therapy; Z79.82 Long term (current) use of aspirin; Z87.891 Personal history of nicotine dependence

== ENCOUNTER → 2021-01-28 | Outpatient (CLI) | payer MEDICARE, OTHER ==
[~2021-01-28] MED LIST changes: +LEVOFLOXACIN750 M2 PO
== END ==
LOC: WOUNDCARE 02:12
PROVIDERS: ATTEND Nurse Practitioner
DX: E11.621 Type 2 diabetes mellitus with foot ulcer (principal); L97.522 Non-pressure chronic ulcer of other part of left foot with fat layer exposed; L97.512 Non-pressure chronic ulcer of other part of right foot with fat layer exposed; E11.622 Type 2 diabetes mellitus with other skin ulcer; L97.222 Non-pressure chronic ulcer of left calf with fat layer exposed; L97.212 Non-pressure chronic ulcer of right calf with fat layer exposed; I87.2 Venous insufficiency (chronic) (peripheral); E11.51 Type 2 diabetes mellitus with diabetic peripheral angiopathy without gangrene; E11.22 Type 2 diabetes mellitus with diabetic chronic kidney disease; I12.9 Hypertensive chronic kidney disease with stage 1 through stage 4 chronic kidney disease, or unspecified chronic kidney disease; N18.9 Chronic kidney disease, unspecified; E11.40 Type 2 diabetes mellitus with diabetic neuropathy, unspecified; E11.39 Type 2 diabetes mellitus with other diabetic ophthalmic complication; H42 Glaucoma in diseases classified elsewhere; J45.909 Unspecified asthma, uncomplicated; K21.9 Gastro-esophageal reflux disease without esophagitis; D64.9 Anemia, unspecified; I25.10 Atherosclerotic heart disease of native coronary artery without angina pectoris; Z87.891 Personal history of nicotine dependence; Z72.89 Other problems related to lifestyle; Z95.810 Presence of automatic (implantable) cardiac defibrillator; Z95.818 Presence of other cardiac implants and grafts; Z98.49 Cataract extraction status, unspecified eye

== ENCOUNTER → 2021-02-10 | Outpatient (CLI) | payer MEDICARE, OTHER | LOC: WOUNDCARE 01:09 | PROVIDERS: ATTEND Nurse Practitioner Family | DX: E11.621 Type 2 diabetes mellitus with foot ulcer (principal); L97.522 Non-pressure chronic ulcer of other part of left foot with fat layer exposed; L97.512 Non-pressure chronic ulcer of other part of right foot with fat layer exposed; E11.622 Type 2 diabetes mellitus with other skin ulcer; L97.212 Non-pressure chronic ulcer of right calf with fat layer exposed; I87.2 Venous insufficiency (chronic) (peripheral); E11.51 Type 2 diabetes mellitus with diabetic peripheral angiopathy without gangrene; E11.22 Type 2 diabetes mellitus with diabetic chronic kidney disease; I12.9 Hypertensive chronic kidney disease with stage 1 through stage 4 chronic kidney disease, or unspecified chronic kidney disease; N18.9 Chronic kidney disease, unspecified; Z87.891 Personal history of nicotine dependence; Z72.89 Other problems related to lifestyle ==

== ENCOUNTER → 2021-02-17 | Outpatient (CLI) | payer MEDICARE, OTHER | LOC: WOUNDCARE 00:53 | PROVIDERS: ATTEND Nurse Practitioner Family | DX: E11.621 Type 2 diabetes mellitus with foot ulcer (principal); L97.522 Non-pressure chronic ulcer of other part of left foot with fat layer exposed; L97.512 Non-pressure chronic ulcer of other part of right foot with fat layer exposed; E11.622 Type 2 diabetes mellitus with other skin ulcer; L97.212 Non-pressure chronic ulcer of right calf with fat layer exposed; I87.2 Venous insufficiency (chronic) (peripheral); E11.51 Type 2 diabetes mellitus with diabetic peripheral angiopathy without gangrene; E11.22 Type 2 diabetes mellitus with diabetic chronic kidney disease; I12.9 Hypertensive chronic kidney disease with stage 1 through stage 4 chronic kidney disease, or unspecified chronic kidney disease; N18.9 Chronic kidney disease, unspecified; M10.09 Idiopathic gout, multiple sites; Z87.891 Personal history of nicotine dependence; Z72.89 Other problems related to lifestyle ==

== ENCOUNTER → 2021-07-30 | Outpatient (CLI) | payer MEDICARE, OTHER | END | disposition home or self-care (01) | LOC: CT 08:03 | PROVIDERS: ATTEND Nurse Practitioner Family | DX: M50.321 Other cervical disc degeneration at C4-C5 level (principal); M50.322 Other cervical disc degeneration at C5-C6 level; M48.02 Spinal stenosis, cervical region; G44.52 New daily persistent headache (NDPH); Z86.69 Personal history of other diseases of the nervous system and sense organs; J32.9 Chronic sinusitis, unspecified ==

== ENCOUNTER → 2021-09-16 | Outpatient (CLI) | payer MEDICARE, OTHER ==
[2021-09-16 12:27] LABS: BASO # 0.1 10*3/uL (0.0-0.1); BASO % 0.7 % (0.0-1.0); BILIRUBIN Negative (Negative); BLOOD Negative (Negative); CLARITY Clear (Clear); COLOR Yellow (Yellow); EOS # 0.2 10*3/uL (0.0-0.4); EOS % 2.7 % (1.0-4.0); GLUCOSE Negative (Negative); HEMATOCRIT 37.7 % (42.0-52.0); KETONE Trace (Negative); LEUKO ESTERASE Negative (Negative); LYMPH # 1.4 10*3/uL (1.3-4.4); LYMPH % 19.9 % (27.0-41.0); MEAN CELL VOLUME 87.9 fl (80.0-94.0); MEAN CORPUSCULAR HGB 29.6 pg (27.0-31.0); MEAN CORPUSCULAR HGB CONC 33.7 g/dl (33.0-37.0); MEAN PLATELET VOLUME 12.3 fl (9.6-12.3); MONO # 0.6 10*3/uL (0.1-1.0); MONO % 8.3 % (3.0-9.0); NEUT # 4.7 10*3/uL (2.3-7.9); NITRITE Negative (Negative); PLATELET COUNT AUTOMATED 188 10*3/uL (130-400); RED BLOOD COUNT 4.29 10*6/uL (4.50-5.90); RED CELL DISTRI WIDTH 13.1 % (0-14.5); SPECIFIC GRAVITY 1.015 (1.001-1.030)
[2021-09-16 12:40] LABS: CREATININE 2.48 mg/dL (0.70-1.30); POTASSIUM 4.1 mmol/L (3.5-5.1)
[2021-09-16 13:08] LABS: BACTERIA 1+; FINE GRANULAR CAST 0-2; WBC 0-2 wbc/hpf (0-5)
[2021-09-16 13:15] LABS: VITAMIN D, 25-HYDROXY 47.2 ng/mL (30-100)
== END | disposition home or self-care (01) ==
LOC: LAB 12:06
PROVIDERS: ATTEND Internal Medicine Nephrology
DX: N18.31 Chronic kidney disease, stage 3a (principal); E55.9 Vitamin D deficiency, unspecified

== ENCOUNTER → 2021-12-06 | Outpatient (CLI) | payer MEDICARE, OTHER ==
[2021-12-06 09:57] LABS: BASO # 0.1 10*3/uL (0.0-0.1); BASO % 1.3 % (0.0-1.0); EOS # 0.2 10*3/uL (0.0-0.4); EOS % 3.9 % (1.0-4.0); HEMATOCRIT 36.5 % (42.0-52.0); LYMPH # 1.3 10*3/uL (1.3-4.4); LYMPH % 22.7 % (27.0-41.0); MEAN CELL VOLUME 87.1 fl (80.0-94.0); MEAN CORPUSCULAR HGB 29.4 pg (27.0-31.0); MEAN CORPUSCULAR HGB CONC 33.7 g/dl (33.0-37.0); MEAN PLATELET VOLUME 12.8 fl (9.6-12.3); MONO # 0.5 10*3/uL (0.1-1.0); MONO % 8.6 % (3.0-9.0); NEUT # 3.5 10*3/uL (2.3-7.9); NEUT % 63.1 % (47.0-73.0); PLATELET COUNT AUTOMATED 187 10*3/uL (130-400); RED BLOOD COUNT 4.19 10*6/uL (4.50-5.90); RED CELL DISTRI WIDTH 12.5 % (0-14.5); WHITE BLOOD COUNT 5.6 10*3/uL (4.8-10.8)
[2021-12-06 09:59] LABS: BILIRUBIN Negative (Negative); BLOOD Negative (Negative); CLARITY Clear (Clear); COLOR Yellow (Yellow); GLUCOSE Negative (Negative); KETONE Negative (Negative); LEUKO ESTERASE Negative (Negative); NITRITE Negative (Negative); PH 5.5 (4.5-8.0); UROBILINOGEN 0.2 E.U./dl (0.0-1.0)
[2021-12-06 10:23] LABS: URINE CREATININE RANDOM 40.3 mg/dL
[2021-12-06 10:26] LABS: CREATININE 1.49 mg/dL (0.70-1.30); POTASSIUM 4.4 mmol/L (3.5-5.1); URIC ACID 8.4 mg/dL (3.5-7.2)
[2021-12-06 11:05] LABS: VITAMIN D, 25-HYDROXY 48.2 ng/mL (30-100)
[2021-12-06 11:17] LABS: BACTERIA TRACE; RBC 0-2 rbc/hpf (0-2); WBC 0-2 wbc/hpf (0-5)
== END | disposition home or self-care (01) ==
LOC: LAB 09:29
PROVIDERS: ATTEND Internal Medicine Nephrology
DX: N18.31 Chronic kidney disease, stage 3a (principal); M10.9 Gout, unspecified; E55.9 Vitamin D deficiency, unspecified

== ENCOUNTER → 2022-06-28 | Outpatient (CLI) | payer MEDICARE, OTHER ==
[2022-06-28 08:54] LABS: BASO # 0.1 10*3/uL (0.0-0.1); BASO % 0.8 % (0.0-1.0); EOS # 0.2 10*3/uL (0.0-0.4); EOS % 4.1 % (1.0-4.0); HEMATOCRIT 37.7 % (42.0-52.0); LYMPH # 1.2 10*3/uL (1.3-4.4); LYMPH % 19.9 % (27.0-41.0); MEAN CELL VOLUME 88.3 fl (80.0-94.0); MEAN CORPUSCULAR HGB 27.9 pg (27.0-31.0); MEAN CORPUSCULAR HGB CONC 31.6 g/dl (33.0-37.0); MEAN PLATELET VOLUME 12.6 fl (9.6-12.3); MONO # 0.4 10*3/uL (0.1-1.0); MONO % 6.1 % (3.0-9.0); NEUT # 4.1 10*3/uL (2.3-7.9); NEUT % 68.8 % (47.0-73.0); PLATELET COUNT AUTOMATED 171 10*3/uL (130-400); RED BLOOD COUNT 4.27 10*6/uL (4.50-5.90); RED CELL DISTRI WIDTH 14.5 % (0-14.5); WHITE BLOOD COUNT 5.9 10*3/uL (4.8-10.8)
[2022-06-28 09:05] LABS: URINE CREATININE RANDOM 61.1 mg/dL
[2022-06-28 09:10] LABS: BILIRUBIN Negative (Negative); BLOOD Negative (Negative); CLARITY Clear (Clear); COLOR Yellow (Yellow); GLUCOSE 3+ (Negative); KETONE Negative (Negative); LEUKO ESTERASE Negative (Negative); NITRITE Negative (Negative); PH 5.5 (4.5-8.0); UROBILINOGEN 0.2 E.U./dl (0.0-1.0)
[2022-06-28 09:20] LABS: URIC ACID 9.5 mg/dL (3.7-9.2)
[2022-06-28 09:24] LABS: VITAMIN D, 25-HYDROXY 62.9 ng/mL (30-100)
[2022-06-28 09:40] LABS: RBC 0-2 rbc/hpf (0-2)
== END | disposition home or self-care (01) ==
LOC: LAB 08:20
PROVIDERS: ATTEND Internal Medicine Nephrology
DX: N18.31 Chronic kidney disease, stage 3a (principal); M10.9 Gout, unspecified; E55.9 Vitamin D deficiency, unspecified

== ENCOUNTER 2022-12-26 13:12 | Emergency (ER) | payer MEDICARE, OTHER ==
[~2022-12-26] VITALS: Ht 177.8 cm; Wt 123.4 kg
[2022-12-26] MEDS ORDERED: OMNIPOD 5 G6 P1 EAC1 SQ (13:37)
[2022-12-26] MEDS ORDERED: ALLOPURINOL100 MG PO (13:37)
[2022-12-26] MEDS ORDERED: LOSARTAN-HCTZ1 EACH PO (13:38)
[2022-12-26] MEDS ORDERED: ROSUVASTATIN CA40 MG PO (13:39)
[2022-12-26] MEDS ORDERED: ASPIRIN ADULT L81 M1 PO (13:56)
[2022-12-26] MEDS ORDERED: CENTRUM SILVER1 EACH PO (13:58)
[2022-12-26] MEDS ORDERED: ZINC50 M4 PO (13:58)
[2022-12-26] MEDS ORDERED: VITAMIN D31250 MC2 PO (13:58)
[2022-12-26] MEDS ORDERED: VITAMIN C500 M4 PO (13:59)
[2022-12-26 14:15] LABS: BASO # 0.1 10*3/uL (0.0-0.1); BASO % 0.7 % (0.0-1.0); EOS # 0.3 10*3/uL (0.0-0.4); EOS % 4.3 % (1.0-4.0); HEMATOCRIT 35.9 % (42.0-52.0); LYMPH # 1.2 10*3/uL (1.3-4.4); LYMPH % 16.7 % (27.0-41.0); MEAN CELL VOLUME 87.3 fl (80.0-94.0); MEAN CORPUSCULAR HGB 29.7 pg (27.0-31.0); MEAN PLATELET VOLUME 11.7 fl (9.6-12.3); MONO # 0.7 10*3/uL (0.1-1.0); MONO % 9.7 % (3.0-9.0); NEUT # 4.8 10*3/uL (2.3-7.9); NEUT % 68.3 % (47.0-73.0); PLATELET COUNT AUTOMATED 249 10*3/uL (130-400); RED BLOOD COUNT 4.11 10*6/uL (4.50-5.90); RED CELL DISTRI WIDTH 12.2 % (0-14.5)
[2022-12-26 14:46] LABS: ALKALINE PHOSPHATASE 120 U/L (46-116); BUN 20 mg/dl (9-23); CHLORIDE 106 mmol/L (98-107); POTASSIUM 4.1 mmol/L (3.4-5.1); SGPT/ALT 16 U/L (10-49); TOTAL PROTEIN 7.4 gm/dL (6.0-8.0); URIC ACID 7.8 mg/dL (3.7-9.2)
[2022-12-26] MEDS ORDERED: HYDROCODONE-AC1 EAC1 PO (16:15)
[2022-12-26] MEDS ORDERED: PREDNISONE50 MG PO (16:15)
[2022-12-26] MEDS ORDERED: VIBRA-TAB100 MG PO (16:15)
== END 2022-12-26 16:33 | disposition home or self-care (01) ==
LOC: ED 13:12
PROVIDERS: Emergency Medicine
DX: M65.88 Other synovitis and tenosynovitis, other site (principal); Z91.048 Other nonmedicinal substance allergy status; Z88.5 Allergy status to narcotic agent; Z88.1 Allergy status to other antibiotic agents; Z79.899 Other long term (current) drug therapy; Z79.4 Long term (current) use of insulin; Z79.82 Long term (current) use of aspirin; Z95.5 Presence of coronary angioplasty implant and graft; Z95.0 Presence of cardiac pacemaker; Z87.891 Personal history of nicotine dependence

== ENCOUNTER → 2023-01-10 | Outpatient (CLI) | payer MEDICARE, OTHER ==
[~2023-01-10] MED LIST changes: +ALLOPURINOL100 MG PO; +ASPIRIN ADULT L81 M1 PO; +CENTRUM SILVER1 EACH PO; +HYDROCODONE-AC1 EAC1 PO; +LOSARTAN-HCTZ1 EACH PO; +OMNIPOD 5 G6 P1 EAC1 SQ; +PREDNISONE50 MG PO; +ROSUVASTATIN CA40 MG PO; +VIBRA-TAB100 MG PO; +VITAMIN C500 M4 PO; +VITAMIN D31250 MC2 PO; +ZINC50 M4 PO
[2023-01-10 11:24] LABS: BASO # 0.1 10*3/uL (0.0-0.1); BASO % 0.5 % (0.0-1.0); EOS # 0.2 10*3/uL (0.0-0.4); EOS % 1.6 % (1.0-4.0); HEMATOCRIT 37.4 % (42.0-52.0); LYMPH # 1.5 10*3/uL (1.3-4.4); LYMPH % 13.9 % (27.0-41.0); MEAN CELL VOLUME 88.2 fl (80.0-94.0); MEAN CORPUSCULAR HGB 28.8 pg (27.0-31.0); MEAN CORPUSCULAR HGB CONC 32.6 g/dl (33.0-37.0); MONO % 9.9 % (3.0-9.0); NEUT # 7.7 10*3/uL (2.3-7.9); NEUT % 73.7 % (47.0-73.0); PLATELET COUNT AUTOMATED 191 10*3/uL (130-400); RED BLOOD COUNT 4.24 10*6/uL (4.50-5.90); RED CELL DISTRI WIDTH 12.9 % (0-14.5); WHITE BLOOD COUNT 10.4 10*3/uL (4.8-10.8)
[2023-01-10 11:39] LABS: BILIRUBIN Negative (Negative); BLOOD Negative (Negative); CLARITY Clear (Clear); COLOR Yellow (Yellow); GLUCOSE Negative (Negative); KETONE Negative (Negative); LEUKO ESTERASE Negative (Negative); NITRITE Negative (Negative); PH 6.5 (4.5-8.0); SPECIFIC GRAVITY 1.015 (1.001-1.030)
[2023-01-10 11:48] LABS: BUN 27 mg/dl (9-23); CHLORIDE 105 mmol/L (98-107); POTASSIUM 4.4 mmol/L (3.4-5.1); URIC ACID 8.2 mg/dL (3.7-9.2); URINE CREATININE RANDOM 76.58 mg/dL
[2023-01-10 11:57] LABS: MUCOUS TRACE
[2023-01-10 12:04] LABS: VITAMIN D, 25-HYDROXY 44.4 ng/mL (30-100)
== END | disposition home or self-care (01) ==
LOC: LAB 10:34
PROVIDERS: Nurse Practitioner Family; ATTEND Internal Medicine Nephrology
DX: E10.319 Type 1 diabetes mellitus with unspecified diabetic retinopathy without macular edema (principal); D64.9 Anemia, unspecified; E78.5 Hyperlipidemia, unspecified; I10 Essential (primary) hypertension; E55.9 Vitamin D deficiency, unspecified

== ENCOUNTER → 2023-07-10 | Outpatient (CLI) | payer MEDICARE, OTHER ==
[2023-07-10 11:41] LABS: BASO # 0.1 10*3/uL (0.0-0.1); BASO % 0.9 % (0.0-1.0); EOS # 0.2 10*3/uL (0.0-0.4); EOS % 3.2 % (1.0-4.0); HEMATOCRIT 40.8 % (42.0-52.0); LYMPH # 1.2 10*3/uL (1.3-4.4); LYMPH % 17.6 % (27.0-41.0); MEAN CELL VOLUME 89.3 fl (80.0-94.0); MEAN CORPUSCULAR HGB 27.8 pg (27.0-31.0); MEAN CORPUSCULAR HGB CONC 31.1 g/dl (33.0-37.0); MEAN PLATELET VOLUME 12.6 fl (9.6-12.3); MONO # 0.6 10*3/uL (0.1-1.0); MONO % 8.7 % (3.0-9.0); NEUT # 4.8 10*3/uL (2.3-7.9); NEUT % 69.3 % (47.0-73.0); PLATELET COUNT AUTOMATED 168 10*3/uL (130-400); RED BLOOD COUNT 4.57 10*6/uL (4.50-5.90); RED CELL DISTRI WIDTH 13.6 % (0-14.5)
[2023-07-10 11:57] LABS: BILIRUBIN Negative (Negative); BLOOD Negative (Negative); CLARITY Clear (Clear); COLOR Yellow (Yellow); GLUCOSE Negative (Negative); KETONE Negative (Negative); LEUKO ESTERASE Negative (Negative); NITRITE Negative (Negative); PH 5.5 (4.5-8.0); UROBILINOGEN 0.2 E.U./dl (0.0-1.0)
[2023-07-10 12:09] LABS: URINE CREATININE RANDOM 35.15 mg/dL
[2023-07-10 12:29] LABS: BUN 19 mg/dl (9-23); CHLORIDE 103 mmol/L (98-107)
== END | disposition home or self-care (01) ==
LOC: LAB 11:19
PROVIDERS: ATTEND Nurse Practitioner Family
DX: E11.22 Type 2 diabetes mellitus with diabetic chronic kidney disease (principal); N18.30 Chronic kidney disease, stage 3 unspecified; D63.1 Anemia in chronic kidney disease; M10.9 Gout, unspecified; E55.9 Vitamin D deficiency, unspecified

== ENCOUNTER → 2023-10-02 | Outpatient (CLI) | payer MEDICARE, OTHER ==
[2023-10-02 10:04] LABS: BASO # 0.1 10*3/uL (0.0-0.1); BASO % 1.3 % (0.0-1.0); EOS # 0.2 10*3/uL (0.0-0.4); EOS % 3.9 % (1.0-4.0); HEMATOCRIT 43.3 % (42.0-52.0); LYMPH # 1.4 10*3/uL (1.3-4.4); LYMPH % 22.4 % (27.0-41.0); MEAN CELL VOLUME 85.9 fl (80.0-94.0); MEAN CORPUSCULAR HGB 29.6 pg (27.0-31.0); MEAN CORPUSCULAR HGB CONC 34.4 g/dl (33.0-37.0); MEAN PLATELET VOLUME 13.2 fl (9.6-12.3); MONO # 0.6 10*3/uL (0.1-1.0); MONO % 8.9 % (3.0-9.0); NEUT # 3.9 10*3/uL (2.3-7.9); NEUT % 63.3 % (47.0-73.0); PLATELET COUNT AUTOMATED 163 10*3/uL (130-400); RED BLOOD COUNT 5.04 10*6/uL (4.50-5.90); RED CELL DISTRI WIDTH 14.3 % (0-14.5); WHITE BLOOD COUNT 6.2 10*3/uL (4.8-10.8)
[2023-10-02 10:27] LABS: URINE CREATININE RANDOM 21.01 mg/dL
[2023-10-02 10:33] LABS: ALKALINE PHOSPHATASE 127 U/L (46-116); BUN 24 mg/dl (9-23); CHLORIDE 104 mmol/L (98-107); CHOLESTEROL 128 mg/dL (<200); LDL CHOLESTEROL 58 mg/dL (9-159); POTASSIUM 3.9 mmol/L (3.4-5.1); SGPT/ALT 24 U/L (5-49); TOTAL PROTEIN 7.5 gm/dL (6.0-8.0); TRIGLYCERIDES 57 mg/dl (<150); URIC ACID 9.9 mg/dL (3.7-9.2)
== END ==
LOC: LAB 09:24
PROVIDERS: ATTEND Nurse Practitioner Family
DX: Z12.5 Encounter for screening for malignant neoplasm of prostate (principal); Z13.29 Encounter for screening for other suspected endocrine disorder; I10 Essential (primary) hypertension; E78.5 Hyperlipidemia, unspecified; M10.9 Gout, unspecified; E10.9 Type 1 diabetes mellitus without complications; M25.571 Pain in right ankle and joints of right foot; M25.572 Pain in left ankle and joints of left foot

== ENCOUNTER → 2023-10-13 | Outpatient (CLI) | payer MEDICARE, OTHER | END | disposition home or self-care (01) | LOC: LAB 11:22 | PROVIDERS: ATTEND Nurse Practitioner Family | DX: M25.571 Pain in right ankle and joints of right foot (principal); M25.572 Pain in left ankle and joints of left foot; M79.89 Other specified soft tissue disorders ==

== ENCOUNTER → 2024-03-25 | Outpatient (CLI) | payer MEDICARE, OTHER ==
[2024-03-25 10:56] LABS: BASO # 0.1 10*3/uL (0.0-0.1); BASO % 1.3 % (0.0-1.0); EOS # 0.3 10*3/uL (0.0-0.4); HEMATOCRIT 40.9 % (42.0-52.0); MEAN CELL VOLUME 90.5 fl (80.0-94.0); MEAN CORPUSCULAR HGB 29.9 pg (27.0-31.0); MEAN PLATELET VOLUME 12.9 fl (9.6-12.3); MONO # 0.5 10*3/uL (0.1-1.0); MONO % 9.2 % (3.0-9.0); NEUT # 3.4 10*3/uL (2.3-7.9); PLATELET COUNT AUTOMATED 187 10*3/uL (130-400); RED BLOOD COUNT 4.52 10*6/uL (4.50-5.90); RED CELL DISTRI WIDTH 13.1 % (0-14.5); WHITE BLOOD COUNT 5.4 10*3/uL (4.8-10.8)
[2024-03-25 10:59] LABS: BILIRUBIN Negative (Negative); BLOOD Negative (Negative); CLARITY Clear (Clear); COLOR Yellow (Yellow); GLUCOSE Negative (Negative); KETONE Negative (Negative); LEUKO ESTERASE Negative (Negative); NITRITE Negative (Negative); SPECIFIC GRAVITY 1.015 (1.001-1.030); UROBILINOGEN 0.2 E.U./dl (0.0-1.0)
[2024-03-25 11:05] LABS: URINE CREATININE RANDOM 76.16 mg/dL
[2024-03-25 11:10] LABS: EPITHELIAL CELLS 0-2; WBC 0-2 wbc/hpf (0-5)
[2024-03-25 11:18] LABS: BUN 22 mg/dl (9-23); CHLORIDE 106 mmol/L (98-107); POTASSIUM 4.2 mmol/L (3.4-5.1); URIC ACID 7.7 mg/dL (3.7-9.2)
[2024-03-25 11:19] LABS: ALKALINE PHOSPHATASE 99 U/L (46-116); BUN 21 mg/dl (9-23); CHLORIDE 105 mmol/L (98-107); CHOLESTEROL 143 mg/dL (<200); LDL CHOLESTEROL 76 mg/dL (9-159); POTASSIUM 4.5 mmol/L (3.4-5.1); SGPT/ALT 14 U/L (5-49); TOTAL PROTEIN 6.9 gm/dL (6.0-8.0); TRIGLYCERIDES 70 mg/dl (<150)
[2024-03-25 11:22] LABS: VITAMIN D, 25-HYDROXY 44.4 ng/mL (30-100)
== END | disposition home or self-care (01) ==
LOC: LAB 10:06
PROVIDERS: ATTEND Nurse Practitioner Family
DX: I12.9 Hypertensive chronic kidney disease with stage 1 through stage 4 chronic kidney disease, or unspecified chronic kidney disease (principal); E11.22 Type 2 diabetes mellitus with diabetic chronic kidney disease; N18.30 Chronic kidney disease, stage 3 unspecified; M10.9 Gout, unspecified; E55.9 Vitamin D deficiency, unspecified; E78.5 Hyperlipidemia, unspecified; D63.1 Anemia in chronic kidney disease

== ENCOUNTER → 2024-06-24 | Outpatient (CLI) | payer MEDICARE, OTHER ==
[2024-06-24 10:15] LABS: BASO # 0.1 10*3/uL (0.0-0.1); BASO % 1.1 % (0.0-1.0); EOS # 0.2 10*3/uL (0.0-0.4); EOS % 3.3 % (1.0-4.0); HEMATOCRIT 40.6 % (42.0-52.0); MEAN CELL VOLUME 90.2 fl (80.0-94.0); MEAN CORPUSCULAR HGB 29.3 pg (27.0-31.0); MEAN CORPUSCULAR HGB CONC 32.5 g/dl (33.0-37.0); MEAN PLATELET VOLUME 12.3 fl (9.6-12.3); MONO # 0.7 10*3/uL (0.1-1.0); NEUT # 4.9 10*3/uL (2.3-7.9); NEUT % 67.3 % (47.0-73.0); PLATELET COUNT AUTOMATED 193 10*3/uL (130-400); RED CELL DISTRI WIDTH 13.1 % (0-14.5); WHITE BLOOD COUNT 7.3 10*3/uL (4.8-10.8)
[2024-06-24 10:42] LABS: BUN 32 mg/dl (9-23); CHLORIDE 105 mmol/L (98-107); POTASSIUM 4.8 mmol/L (3.4-5.1); URIC ACID 9.5 mg/dL (3.7-9.2)
[2024-06-24 11:06] LABS: VITAMIN D, 25-HYDROXY 45.1 ng/mL (30-100)
== END | disposition home or self-care (01) ==
LOC: LAB 10:00
PROVIDERS: ATTEND Nurse Practitioner Family
DX: M10.9 Gout, unspecified (principal); E55.9 Vitamin D deficiency, unspecified; N18.30 Chronic kidney disease, stage 3 unspecified; D63.1 Anemia in chronic kidney disease

== ENCOUNTER → 2024-10-08 | Outpatient (CLI) | payer MEDICARE, OTHER | END | disposition home or self-care (01) | LOC: CARD 11:42 | PROVIDERS: ATTEND Internal Medicine Cardiovascular Disease | DX: R42 Dizziness and giddiness (principal); I49.5 Sick sinus syndrome; Z95.0 Presence of cardiac pacemaker ==

== ENCOUNTER → 2024-10-11 | Outpatient (CLI) | payer MEDICARE, OTHER ==
[2024-10-11 11:20] LABS: BASO # 0.1 10*3/uL (0.0-0.1); EOS # 0.3 10*3/uL (0.0-0.4); EOS % 4.9 % (1.0-4.0); HEMATOCRIT 38.6 % (42.0-52.0); MEAN CELL VOLUME 88.7 fl (80.0-94.0); MEAN CORPUSCULAR HGB 28.7 pg (27.0-31.0); MEAN CORPUSCULAR HGB CONC 32.4 g/dl (33.0-37.0); MEAN PLATELET VOLUME 12.2 fl (9.6-12.3); MONO # 0.6 10*3/uL (0.1-1.0); MONO % 10.3 % (3.0-9.0); NEUT # 3.8 10*3/uL (2.3-7.9); NEUT % 63.1 % (47.0-73.0); PLATELET COUNT AUTOMATED 182 10*3/uL (130-400); RED BLOOD COUNT 4.35 10*6/uL (4.50-5.90); RED CELL DISTRI WIDTH 13.6 % (0-14.5); WHITE BLOOD COUNT 6.1 10*3/uL (4.8-10.8)
[2024-10-11 11:47] LABS: POTASSIUM 4.5 mmol/L (3.4-5.1); URIC ACID 9.5 mg/dL (3.7-9.2)
[2024-10-11 11:51] LABS: VITAMIN D, 25-HYDROXY 40.3 ng/mL (30-100)
== END | disposition home or self-care (01) ==
LOC: LAB 10:50
PROVIDERS: ATTEND Internal Medicine Nephrology
DX: N18.30 Chronic kidney disease, stage 3 unspecified (principal); E55.9 Vitamin D deficiency, unspecified; D63.1 Anemia in chronic kidney disease; M10.9 Gout, unspecified

== ENCOUNTER → 2025-02-12 | Outpatient (CLI) | payer MEDICARE, OTHER ==
[2025-02-12 13:29] LABS: BASO # 0.1 10*3/uL (0.0-0.1); BASO % 1.4 % (0.0-1.0); BILIRUBIN Negative (Negative); BLOOD Negative (Negative); CLARITY Clear (Clear); COLOR Yellow (Yellow); EOS # 0.3 10*3/uL (0.0-0.4); EOS % 4.8 % (1.0-4.0); KETONE Negative (Negative); LEUKO ESTERASE Negative (Negative); MEAN CELL VOLUME 88.6 fl (80.0-94.0); MEAN CORPUSCULAR HGB 28.7 pg (27.0-31.0); MEAN PLATELET VOLUME 12.2 fl (9.6-12.3); MONO # 0.6 10*3/uL (0.1-1.0); MONO % 9.7 % (3.0-9.0); NEUT # 3.5 10*3/uL (2.3-7.9); NEUT % 59.4 % (47.0-73.0); NITRITE Negative (Negative); NUCLEATED RED BLOOD CELL 0.0 % (0.0-0.0); NUCLEATED RED BLOOD CELL 0.0 10*3/uL (0.0-0.0); PH 5.5 (4.5-8.0); PLATELET COUNT AUTOMATED 206 10*3/uL (130-400); RED CELL DISTRI WIDTH 13.4 % (0-14.5); SPECIFIC GRAVITY 1.020 (1.001-1.030); UROBILINOGEN 0.2 E.U./dl (0.0-1.0)
[2025-02-12 13:57] LABS: BUN 22 mg/dl (9-23)
[2025-02-12 14:00] LABS: VITAMIN D, 25-HYDROXY 45.6 ng/mL (30-100)
[2025-02-12 14:01] LABS: BACTERIA 1+; MUCOUS 1+; RBC 0-2 rbc/hpf (0-2)
== END | disposition home or self-care (01) ==
LOC: LAB 12:57
PROVIDERS: ATTEND Internal Medicine Nephrology
DX: E55.9 Vitamin D deficiency, unspecified (principal); E10.22 Type 1 diabetes mellitus with diabetic chronic kidney disease; N18.30 Chronic kidney disease, stage 3 unspecified; D63.1 Anemia in chronic kidney disease

== ENCOUNTER → 2025-02-14 | Outpatient (CLI) | payer MEDICARE, OTHER | END | disposition home or self-care (01) | LOC: WOUNDCARE 00:20 | PROVIDERS: ATTEND Nurse Practitioner Family | DX: E10.622 Type 1 diabetes mellitus with other skin ulcer (principal); L97.812 Non-pressure chronic ulcer of other part of right lower leg with fat layer exposed; L97.822 Non-pressure chronic ulcer of other part of left lower leg with fat layer exposed; E10.621 Type 1 diabetes mellitus with foot ulcer; L97.511 Non-pressure chronic ulcer of other part of right foot limited to breakdown of skin; I87.2 Venous insufficiency (chronic) (peripheral); E10.51 Type 1 diabetes mellitus with diabetic peripheral angiopathy without gangrene; E10.22 Type 1 diabetes mellitus with diabetic chronic kidney disease; I12.9 Hypertensive chronic kidney disease with stage 1 through stage 4 chronic kidney disease, or unspecified chronic kidney disease; N18.9 Chronic kidney disease, unspecified; I25.10 Atherosclerotic heart disease of native coronary artery without angina pectoris; Z87.891 Personal history of nicotine dependence; Z95.0 Presence of cardiac pacemaker; Z98.49 Cataract extraction status, unspecified eye ==

== ENCOUNTER → 2025-02-19 | Outpatient (CLI) | payer MEDICARE, OTHER | END | disposition home or self-care (01) | LOC: WOUNDCARE 03:06 | PROVIDERS: ATTEND Nurse Practitioner Family | DX: E11.622 Type 2 diabetes mellitus with other skin ulcer (principal); L97.822 Non-pressure chronic ulcer of other part of left lower leg with fat layer exposed; L97.812 Non-pressure chronic ulcer of other part of right lower leg with fat layer exposed; E11.621 Type 2 diabetes mellitus with foot ulcer; L97.512 Non-pressure chronic ulcer of other part of right foot with fat layer exposed; E11.51 Type 2 diabetes mellitus with diabetic peripheral angiopathy without gangrene; I87.2 Venous insufficiency (chronic) (peripheral); I12.9 Hypertensive chronic kidney disease with stage 1 through stage 4 chronic kidney disease, or unspecified chronic kidney disease; E11.22 Type 2 diabetes mellitus with diabetic chronic kidney disease; N18.9 Chronic kidney disease, unspecified; I25.10 Atherosclerotic heart disease of native coronary artery without angina pectoris; Z87.891 Personal history of nicotine dependence; Z98.890 Other specified postprocedural states; Z79.4 Long term (current) use of insulin; Z79.82 Long term (current) use of aspirin; Z79.899 Other long term (current) drug therapy ==

== ENCOUNTER → 2025-02-26 | Outpatient (CLI) | payer MEDICARE, OTHER | END | disposition home or self-care (01) | LOC: WOUNDCARE 01:46 | PROVIDERS: ATTEND Nurse Practitioner Family | DX: E10.622 Type 1 diabetes mellitus with other skin ulcer (principal); L97.822 Non-pressure chronic ulcer of other part of left lower leg with fat layer exposed; L97.812 Non-pressure chronic ulcer of other part of right lower leg with fat layer exposed; E10.621 Type 1 diabetes mellitus with foot ulcer; L97.511 Non-pressure chronic ulcer of other part of right foot limited to breakdown of skin; I87.2 Venous insufficiency (chronic) (peripheral); E10.51 Type 1 diabetes mellitus with diabetic peripheral angiopathy without gangrene; E10.22 Type 1 diabetes mellitus with diabetic chronic kidney disease; I12.9 Hypertensive chronic kidney disease with stage 1 through stage 4 chronic kidney disease, or unspecified chronic kidney disease; N18.9 Chronic kidney disease, unspecified; I25.10 Atherosclerotic heart disease of native coronary artery without angina pectoris; Z87.891 Personal history of nicotine dependence; Z95.0 Presence of cardiac pacemaker; Z98.49 Cataract extraction status, unspecified eye ==

== ENCOUNTER → 2025-03-05 | Outpatient (CLI) | payer MEDICARE, OTHER | END | disposition home or self-care (01) | LOC: WOUNDCARE 02:12 | PROVIDERS: ATTEND Nurse Practitioner Family | DX: E10.622 Type 1 diabetes mellitus with other skin ulcer (principal); L97.822 Non-pressure chronic ulcer of other part of left lower leg with fat layer exposed; L97.812 Non-pressure chronic ulcer of other part of right lower leg with fat layer exposed; E10.621 Type 1 diabetes mellitus with foot ulcer; L97.512 Non-pressure chronic ulcer of other part of right foot with fat layer exposed; I87.2 Venous insufficiency (chronic) (peripheral); E10.51 Type 1 diabetes mellitus with diabetic peripheral angiopathy without gangrene; E10.22 Type 1 diabetes mellitus with diabetic chronic kidney disease; I12.9 Hypertensive chronic kidney disease with stage 1 through stage 4 chronic kidney disease, or unspecified chronic kidney disease; N18.9 Chronic kidney disease, unspecified; I25.10 Atherosclerotic heart disease of native coronary artery without angina pectoris; Z87.891 Personal history of nicotine dependence; Z95.0 Presence of cardiac pacemaker; Z98.49 Cataract extraction status, unspecified eye ==

== ENCOUNTER → 2025-03-11 | Outpatient (CLI) | payer MEDICARE, OTHER | END | disposition home or self-care (01) | LOC: WOUNDCARE 03-10 23:12 | PROVIDERS: ATTEND Nurse Practitioner Family | DX: E10.622 Type 1 diabetes mellitus with other skin ulcer (principal); L97.822 Non-pressure chronic ulcer of other part of left lower leg with fat layer exposed; L97.812 Non-pressure chronic ulcer of other part of right lower leg with fat layer exposed; E10.621 Type 1 diabetes mellitus with foot ulcer; L97.512 Non-pressure chronic ulcer of other part of right foot with fat layer exposed; L84 Corns and callosities; I87.2 Venous insufficiency (chronic) (peripheral); E10.51 Type 1 diabetes mellitus with diabetic peripheral angiopathy without gangrene; E10.22 Type 1 diabetes mellitus with diabetic chronic kidney disease; I12.9 Hypertensive chronic kidney disease with stage 1 through stage 4 chronic kidney disease, or unspecified chronic kidney disease; N18.9 Chronic kidney disease, unspecified; I25.10 Atherosclerotic heart disease of native coronary artery without angina pectoris; Z87.891 Personal history of nicotine dependence; Z95.0 Presence of cardiac pacemaker; Z95.1 Presence of aortocoronary bypass graft; Z98.49 Cataract extraction status, unspecified eye ==

== ENCOUNTER → 2025-03-26 | Outpatient (CLI) | payer MEDICARE, OTHER | END | disposition home or self-care (01) | LOC: WOUNDCARE 02:40 | PROVIDERS: ATTEND Nurse Practitioner Family | DX: E10.622 Type 1 diabetes mellitus with other skin ulcer (principal); L97.812 Non-pressure chronic ulcer of other part of right lower leg with fat layer exposed; L97.822 Non-pressure chronic ulcer of other part of left lower leg with fat layer exposed; I87.2 Venous insufficiency (chronic) (peripheral); E10.51 Type 1 diabetes mellitus with diabetic peripheral angiopathy without gangrene; E10.22 Type 1 diabetes mellitus with diabetic chronic kidney disease; I12.9 Hypertensive chronic kidney disease with stage 1 through stage 4 chronic kidney disease, or unspecified chronic kidney disease; N18.9 Chronic kidney disease, unspecified; I25.10 Atherosclerotic heart disease of native coronary artery without angina pectoris; Z87.891 Personal history of nicotine dependence; Z95.0 Presence of cardiac pacemaker; Z98.49 Cataract extraction status, unspecified eye ==

== ENCOUNTER → 2025-04-09 | Outpatient (CLI) | payer MEDICARE, OTHER | LOC: WOUNDCARE 00:16 | PROVIDERS: ATTEND Nurse Practitioner Family | DX: E10.622 Type 1 diabetes mellitus with other skin ulcer (principal); L97.812 Non-pressure chronic ulcer of other part of right lower leg with fat layer exposed; L97.822 Non-pressure chronic ulcer of other part of left lower leg with fat layer exposed; R60.9 Edema, unspecified; L84 Corns and callosities; I87.2 Venous insufficiency (chronic) (peripheral); E10.51 Type 1 diabetes mellitus with diabetic peripheral angiopathy without gangrene; E10.22 Type 1 diabetes mellitus with diabetic chronic kidney disease; I12.9 Hypertensive chronic kidney disease with stage 1 through stage 4 chronic kidney disease, or unspecified chronic kidney disease; N18.9 Chronic kidney disease, unspecified; I25.10 Atherosclerotic heart disease of native coronary artery without angina pectoris; Z95.0 Presence of cardiac pacemaker; Z98.49 Cataract extraction status, unspecified eye; Z98.890 Other specified postprocedural states; Z87.891 Personal history of nicotine dependence; Z79.4 Long term (current) use of insulin; Z79.82 Long term (current) use of aspirin; Z79.899 Other long term (current) drug therapy ==

== ENCOUNTER → 2025-04-15 | Outpatient (CLI) | payer MEDICARE, OTHER | END | disposition home or self-care (01) | LOC: WOUNDCARE 02:53 | PROVIDERS: ATTEND Nurse Practitioner Family | DX: E10.622 Type 1 diabetes mellitus with other skin ulcer (principal); L97.812 Non-pressure chronic ulcer of other part of right lower leg with fat layer exposed; L97.822 Non-pressure chronic ulcer of other part of left lower leg with fat layer exposed; E10.51 Type 1 diabetes mellitus with diabetic peripheral angiopathy without gangrene; I87.2 Venous insufficiency (chronic) (peripheral); E10.22 Type 1 diabetes mellitus with diabetic chronic kidney disease; I12.9 Hypertensive chronic kidney disease with stage 1 through stage 4 chronic kidney disease, or unspecified chronic kidney disease; N18.9 Chronic kidney disease, unspecified; I25.10 Atherosclerotic heart disease of native coronary artery without angina pectoris; Z87.891 Personal history of nicotine dependence; Z95.0 Presence of cardiac pacemaker; Z98.42 Cataract extraction status, left eye ==

== ENCOUNTER → 2025-04-22 | Outpatient (CLI) | payer MEDICARE, OTHER ==
[2025-04-22 11:48] LABS: BASO # 0.1 10*3/uL (0.0-0.1); BASO % 1.0 % (0.0-1.0); EOS # 0.2 10*3/uL (0.0-0.4); EOS % 2.9 % (1.0-4.0); MEAN CELL VOLUME 88.3 fl (80.0-94.0); MEAN CORPUSCULAR HGB 28.5 pg (27.0-31.0); MEAN PLATELET VOLUME 12.1 fl (9.6-12.3); MONO # 0.6 10*3/uL (0.1-1.0); MONO % 8.7 % (3.0-9.0); NEUT # 4.8 10*3/uL (2.3-7.9); NEUT % 69.2 % (47.0-73.0); NUCLEATED RED BLOOD CELL 0.0 % (0.0-0.0); NUCLEATED RED BLOOD CELL 0.0 10*3/uL (0.0-0.0); PLATELET COUNT AUTOMATED 222 10*3/uL (130-400); RED CELL DISTRI WIDTH 13.6 % (0-14.5)
[2025-04-22 12:09] LABS: ACT PARTIAL THROMBO TIME 27.5 SECONDS (20.0-32.1)
[2025-04-22 12:42] LABS: BUN 19 mg/dl (9-23)
== END | disposition home or self-care (01) ==
LOC: WOUNDCARE 02:23 → LAB 03:13 → WOUNDCARE 05:36
PROVIDERS: Internal Medicine Cardiovascular Disease; ATTEND Nurse Practitioner Family
DX: E10.622 Type 1 diabetes mellitus with other skin ulcer (principal); L97.812 Non-pressure chronic ulcer of other part of right lower leg with fat layer exposed; L97.822 Non-pressure chronic ulcer of other part of left lower leg with fat layer exposed; I87.2 Venous insufficiency (chronic) (peripheral); E10.51 Type 1 diabetes mellitus with diabetic peripheral angiopathy without gangrene; E10.22 Type 1 diabetes mellitus with diabetic chronic kidney disease; I12.9 Hypertensive chronic kidney disease with stage 1 through stage 4 chronic kidney disease, or unspecified chronic kidney disease; N18.9 Chronic kidney disease, unspecified; I25.10 Atherosclerotic heart disease of native coronary artery without angina pectoris; Z87.891 Personal history of nicotine dependence; Z95.0 Presence of cardiac pacemaker; Z98.49 Cataract extraction status, unspecified eye